=== PATIENT | female | born 1965 | race Caucasian/White ===

== ENCOUNTER 2020-11-02 14:31 | Emergency (ER) | payer MEDICARE, OTHER ==
[~2020-11-02] VITALS: Ht 157 cm; Wt 73.0 kg
[~2020-11-02 14:31] MED LIST: ACHD5005 PO; ACHYD1T; AGM875T PO; ALBU2.5V4 IH; AMLO10TA82 PO; ATR20T PO; ATRV10T PO; AZTH250C PO; BACL10TA PO; BENZ100C18; BENZ100C18 PO; BUDE6HFA IH; CHLO500T2 PO; CLN.2T PO; CLON0.5T2; CLON0.5T3 PO; DICL50TA6 PO; ESTR0.455 PO; ESTR2TAB4 PO; FESO4TAB2 PO; FLT05NA16 NS; FLUT50DI; FLUTICASONE; GABA-486 PO; GEMF600T3 PO; HYDR-1231 PO; HYDR-757 PO; HYDR118S10 PO; KETO-22 PO; KLOR-CON PO; LEVO150T6 PO; LEVO500T69 PO; LISI20TA BC; LORA10TA7 PO; LOSA1TAB16 PO; LVT.1T PO; MELO-195 PO; METH4TAB PO; METO-272 PO; METO100T12 PO; NAPR-243; NAPR-243 PO; ONDA-42 SL; ONDA4TAB11 PO; ONDA8TAB13 PO; OXYC1TAB11 PO; PARO20TA57; PARO40TA3 PO; PNT40TEC PO; PRED20TA PO; PREDISONE; PROP20TA5 PO; PRX20T PO; ROPI0.5T2 PO; ROPI1TAB PO; SULF1TAB38 PO; TIZA2CAP PO; TIZA4TAB4 PO; TRAM50TA2 PO; TRM50T PO; TYLENOL #3
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
--- NOTE | 2020-11-02 15:29 | Diagnostic Imaging Report ---
PROCEDURE: CT head and CT cervical spine without contrast. TECHNIQUE: Multiple contiguous axial images were obtained through the brain and cervical spine without the use of intravenous contrast. Sagittal and coronal reformations through the cervical spine were then performed. Auto Exposure Controls were utilized during the CT exam to meet ALARA standards for radiation dose reduction. INDICATION: Headache. Head and neck pain. COMPARISON: 02/22/2016. 07/14/2015. FINDINGS: CT head: No large acute territorial ischemia, mass, or hemorrhage. No midline shift or mass effect. The ventricles, cortical sulci, and basilar cisterns are patent and unremarkable. The calvarium is intact. The visualized paranasal sinuses are clear. CT cervical spine: No acute fracture or dislocation is seen in the cervical spine. No focal osseous lesions. Anterior fusion changes are visualized at C3-C4 and C4-C5 with posterior fusion changes from the C5-C7 level. No evidence of hardware fracture or loosening. Vertebral body heights are well-maintained. The craniocervical junction is well-maintained. Soft tissues of the neck are unremarkable. The included lung apices are clear. IMPRESSION: 1. No hemorrhage or focal intra-axial mass. No CT evidence of large acute territorial ischemia. 2. No acute fracture or dislocation in the cervical spine. 3. Anterior fusion from C3 to C5 and posterior fusion from C5 to C7. No evidence of hardware fracture or loosening. Dictated by: Dictated on workstation # [id number]
[2020-11-02 15:54] VITALS: BP 168/89
== END 2020-11-02 15:54 | disposition home or self-care (01) ==
LOC: EDUNIT# 14:31 → ER 14:33
DX: S09.90XA Unspecified injury of head, initial encounter (principal); S19.9XXA Unspecified injury of neck, initial encounter; I10 Essential (primary) hypertension; J45.909 Unspecified asthma, uncomplicated; E03.9 Hypothyroidism, unspecified; F41.9 Anxiety disorder, unspecified; F32.9 Major depressive disorder, single episode, unspecified; K21.9 Gastro-esophageal reflux disease without esophagitis; R40.2410 Glasgow coma scale score 13-15, unspecified time; Z79.890 Hormone replacement therapy; Z79.899 Other long term (current) drug therapy; W22.8XXA Striking against or struck by other objects, initial encounter
CPT/HCPCS: 70450; 72125

== ENCOUNTER 2020-12-07 17:23 | Emergency (ER) | payer MEDICARE, OTHER ==
[~2020-12-07] VITALS: Ht 157 cm; Wt 72.0 kg
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
[2020-12-07] MEDS ORDERED: METH4TAB PO (18:40)
[2020-12-07] MEDS ORDERED: RT-ALBUINH IH (18:40)
--- NOTE | 2020-12-07 19:03 | Diagnostic Imaging Report ---
INDICATION: Cough. EXAMINATION: Portable erect AP chest at 6:40 p.m. FINDINGS: The heart size is within normal limits and stable when compared to 06/16/2015. The lungs remain clear. There is no sign of failure, pneumonia or a pleural effusion. The mediastinum is not widened. The osseous structures are intact. The orthopedic hardware overlying the lower cervical spine, seen previously, is again evident. There now appear to be orthopedic screws in each humeral head. IMPRESSION: Stable chest. There has been no adverse change since the prior exam.. No new abnormality has developed. Dictated by: Dictated on workstation # [id number]
[2020-12-07 19:45] VITALS: BP 128/73
== END 2020-12-07 19:45 | disposition home or self-care (01) ==
LOC: EDUNIT# 17:23 → ER 17:24
DX: J44.9 Chronic obstructive pulmonary disease, unspecified (principal); I10 Essential (primary) hypertension; K21.9 Gastro-esophageal reflux disease without esophagitis; F41.9 Anxiety disorder, unspecified; E03.9 Hypothyroidism, unspecified; F32.9 Major depressive disorder, single episode, unspecified; Z20.822 Contact with and (suspected) exposure to COVID-19; Z79.899 Other long term (current) drug therapy; Z79.890 Hormone replacement therapy
CPT/HCPCS: 71045; 87636

== ENCOUNTER 2022-05-07 12:36 | Emergency (ER) | payer MEDICARE, OTHER ==
[~2022-05-07] VITALS: Ht 157.5 cm; Wt 72.6 kg
[~2022-05-07 12:36] MED LIST changes: +ALBU8.5H6 IH; +TIZA-186 PO; -TIZA4TAB4 PO
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
[2022-05-07] MEDS ORDERED: TRAM50TA3 PO (13:55)
[2022-05-07] MEDS ORDERED: PRD20T PO (13:55)
[2022-05-07 14:04] VITALS: BP 132/85
== END 2022-05-07 14:04 | disposition home or self-care (01) ==
LOC: EDUNIT# 12:36 → ER 12:39
DX: M25.512 Pain in left shoulder (principal); G56.22 Lesion of ulnar nerve, left upper limb; Z88.5 Allergy status to narcotic agent; Z28.310 Unvaccinated for COVID-19

== ENCOUNTER → 2023-03-18 | Outpatient (CLI) | payer MEDICARE, OTHER ==
[~2023-03-18] MED LIST changes: +PRD20T PO; +TRAM50TA3 PO
[2023-03-18 12:45] LABS: ALBUMIN 3.9 GM/DL (3.2-4.5); POTASSIUM 4.3 MMOL/L (3.6-5.0)
[2023-03-18 12:46] LABS: CALCIUM 8.7 MG/DL (8.5-10.1)
[2023-03-18 12:47] LABS: BASOPHILS # (AUTO) 0.1 10^3/uL (0.0-0.1); BASOPHILS % (AUTO) 1 % (0-10); EOSINOPHILS # (AUTO) 0.2 10^3/uL (0.0-0.3); EOSINOPHILS % (AUTO) 4 % (0-10); HEMATOCRIT 40 % (35-52); HEMOGLOBIN 12.8 g/dL (11.5-16.0); LYMPHOCYTES # (AUTO) 2.7 10^3/uL (1.0-4.0); LYMPHOCYTES % (AUTO) 42 % (12-44); MEAN CORPUSCULAR HEMOGLOBIN 28 pg (25-34); MEAN CORPUSCULAR HGB CONC 32 g/dL (32-36); MEAN CORPUSCULAR VOLUME 88 fL (80-99); MEAN PLATELET VOLUME 10.1 fL (9.0-12.2); MONOCYTES # (AUTO) 0.5 10^3/uL (0.0-1.0); MONOCYTES % (AUTO) 8 % (0-12); NEUTROPHILS # (AUTO) 2.9 10^3/uL (1.8-7.8); NEUTROPHILS % (AUTO) 46 % (42-75); PLATELET COUNT 241 10^3/uL (130-400); TOTAL PROTEIN 7.3 GM/DL (6.4-8.2); WHITE BLOOD COUNT 6.4 10^3/uL (4.3-11.0)
[2023-03-18 12:49] LABS: BILIRUBIN,TOTAL 0.6 MG/DL (0.1-1.0)
[2023-03-18 12:51] LABS: CREATININE SERUM 1.01 MG/DL (0.60-1.30)
== END ==
LOC: LAB 12:15
PROVIDERS: ATTEND Nurse Practitioner Family
DX: R06.02 Shortness of breath (principal)
CPT/HCPCS: 36415; 80053; 83880; 85025; 85379